=== PATIENT | female | born 1935 | race Caucasian/White ===

== ENCOUNTER → 2016-12-29 | Outpatient (CLI) | payer MEDICARE, OTHER ==
[~2016-12-29] MED LIST: ADENOSINE 60 MG in GIVE UN-DILUTED 0 ML IV ONE; ADENOSINE 90 MG/30 ML INJ IV ONE; ASPI81CH43 PO; EXFORGE PO; GLIP-116 PO; HYDR-1421 PO; METO25TA5 PO; NEXIUM PO; NORVASC PO; SIMV-13 PO; SMZ PO
== END | disposition home or self-care (01) ==
LOC: Rad HDHVI 09:12
PROVIDERS: ATTEND Internal Medicine Cardiovascular Disease
DX: R00.2 Palpitations (principal); M54.12 Radiculopathy, cervical region; H53.2 Diplopia; E11.9 Type 2 diabetes mellitus without complications; Z79.4 Long term (current) use of insulin
CPT/HCPCS: 78452; 93005; 93880; 96374; 96375; A9500; J0153

== ENCOUNTER → 2017-12-16 | Outpatient (CLI) | payer MEDICARE, OTHER ==
[~2017-12-16] MED LIST changes: -ADENOSINE 60 MG in GIVE UN-DILUTED 0 ML IV ONE; -ADENOSINE 90 MG/30 ML INJ IV ONE
== END | disposition home or self-care (01) ==
LOC: Rad HDHVI 11:42
PROVIDERS: ATTEND Internal Medicine Cardiovascular Disease
DX: M19.012 Primary osteoarthritis, left shoulder (principal); M75.32 Calcific tendinitis of left shoulder; M19.011 Primary osteoarthritis, right shoulder; M48.061 Spinal stenosis, lumbar region without neurogenic claudication; M43.16 Spondylolisthesis, lumbar region
CPT/HCPCS: 72131; 73030

== ENCOUNTER → 2018-01-13 | Outpatient (CLI) | payer MEDICARE, OTHER ==
[~2018-01-13] MED LIST changes: +ADENOSINE 72 MG in GIVE UN-DILUTED 0 ML IV ONE; +ADENOSINE 90 MG/30 ML INJ IV ONE
[2018-01-13 12:01] LABS: Urine Blood Negative /uL (Negative); Urine Specific Gravity 1.022 (1.001-1.035)
[2018-01-13 12:07] LABS: Basophils # (auto) 0 uL; Basophils % (auto) 0.6 % (0.0-2.0); Eosinophils # (auto) 0.3 uL; Hemoglobin 13.1 g/dL (12.2-16.2); Lymphocytes # (auto) 1.6 uL; Lymphocytes % (auto) 22.6 % (10.0-50.0); Mean Corpuscular Hemoglobin 30.1 pg (28.0-32.0); Mean Corpuscular Hgb Conc. 32.8 g/dL (32.0-36.0); Mean Corpuscular Volume 91.7 fL (80.0-100.0); Monocytes # (auto) 0.7 uL; Monocytes % (auto) 9.7 % (0.0-12.0); Neutrophils # (auto) 4.5 uL; Neutrophils % (auto) 63.1 % (37.0-80.0); Platelet Count (auto) 221 10^3/uL (140-450); Red Blood Cells 4.36 10^6/uL (4.0-5.20); Red Cell Distribution Width 14.5 % (11.8-14.3); White Blood Cell 7.1 10^3/uL (4.4-10.8)
[2018-01-13 12:17] LABS: Free T4 (Free Thyroxine) 1.33 ng/dL (0.89-1.76)
[2018-01-13 12:26] LABS: Albumin 3.9 g/dL (3.4-5.0); BUN/Creatinine Ratio 24.7; Bilirubin, Total 0.5 mg/dL (0.2-1.0); Calcium 9.4 mg/dL (8.5-10.1); Potassium 4.6 mmol/L (3.5-5.1); Total Protein 7.3 g/dL (6.4-8.2)
== END | disposition home or self-care (01) ==
LOC: Rad HDHVI 08:56
PROVIDERS: ATTEND Internal Medicine Cardiovascular Disease
DX: I07.1 Rheumatic tricuspid insufficiency (principal); M25.512 Pain in left shoulder; M25.511 Pain in right shoulder; E78.5 Hyperlipidemia, unspecified; D64.9 Anemia, unspecified; I10 Essential (primary) hypertension; E11.9 Type 2 diabetes mellitus without complications; E03.9 Hypothyroidism, unspecified; E55.9 Vitamin D deficiency, unspecified; D51.9 Vitamin B12 deficiency anemia, unspecified; N39.0 Urinary tract infection, site not specified
CPT/HCPCS: 36415; 78452; 80053; 80061; 81003; 82306; 82607; 83036; 84439; 84443; 85025; 93005; 93306; 96374; 96375; A9500; J0153

== ENCOUNTER → 2018-07-24 | Outpatient (CLI) | payer MEDICARE, MEDICAID ==
[~2018-07-24] MED LIST changes: -ADENOSINE 72 MG in GIVE UN-DILUTED 0 ML IV ONE; -ADENOSINE 90 MG/30 ML INJ IV ONE; +AMLO-321 PO; +CHOL100079 OR; +COEN100C37 PO; +DEXL60CA3 PO; +ESOM40CA39 PO; +GABA300C10 PO; +LORA-655 PO; +RANITAB8 PO; +SITA50TA28 PO
[2018-07-24 09:15] VITALS: BP 141/60
[2018-07-24 09:45] VITALS: BP 124/64
[2018-07-24 12:32] LABS: Basophils # (auto) 0 uL; Basophils % (auto) 0.7 % (0.0-2.0); Eosinophils # (auto) 0.3 uL; Eosinophils % (auto) 4.2 % (0.0-7.0); Hematocrit 40.6 % (36.0-46.0); Hemoglobin 13.7 g/dL (12.2-16.2); Lymphocytes # (auto) 1.3 uL; Lymphocytes % (auto) 20.3 % (10.0-50.0); Mean Corpuscular Hemoglobin 31.3 pg (28.0-32.0); Mean Corpuscular Hgb Conc. 33.7 g/dL (32.0-36.0); Mean Corpuscular Volume 92.9 fL (80.0-100.0); Monocytes # (auto) 0.6 uL; Monocytes % (auto) 9.2 % (0.0-12.0); Neutrophils # (auto) 4.3 uL; Neutrophils % (auto) 65.6 % (37.0-80.0); Nucleated Red Blood Cells % 0.1 %; Platelet Count (auto) 226 10^3/uL (140-450); Red Blood Cells 4.37 10^6/uL (4.0-5.20); Red Cell Distribution Width 14.1 % (11.8-14.3); White Blood Cell 6.5 10^3/uL (4.4-10.8)
[2018-07-24 12:37] LABS: Calcium 9.3 mg/dL (8.5-10.1); Potassium 4.2 mmol/L (3.5-5.1)
[2018-07-24 12:39] LABS: BUN/Creatinine Ratio 27.2
[2018-07-24 13:20] LABS: INR 0.94 (0.9-1.15); Partial Thromboplastin Time 23.2 sec (23.78-33.04); Prothrombin Time 10.1 sec (9.27-12.13)
== END | disposition home or self-care (01) ==
LOC: Rad HDHVI 09:00
PROVIDERS: ATTEND Internal Medicine Cardiovascular Disease
DX: Z01.818 Encounter for other preprocedural examination (principal); D64.9 Anemia, unspecified; R79.1 Abnormal coagulation profile; I10 Essential (primary) hypertension
CPT/HCPCS: 36415; 71046; 80048; 85025; 85610; 85730; 93005; G0463

== ENCOUNTER 2018-07-27 07:57 | Day surgery (SDC) | payer MEDICARE, MEDICAID ==
[~2018-07-27] VITALS: Ht 162.6 cm; Wt 82.6 kg
[~2018-07-27 07:57] MED LIST changes: -ASPI81CH43 PO; -EXFORGE PO; -GLIP-116 PO; -HYDR-1421 PO; -METO25TA5 PO; -NEXIUM PO; -NORVASC PO; -SMZ PO
[2018-07-27] MEDS ORDERED: LIDOCAINE 2%HCL (LOCAL ANESTH.) INJ 10ml MDV ONE (08:52)
[2018-07-27] MEDS ORDERED: IOHEXOL 350 MG/ML 100ML IJ ONE (08:53)
[2018-07-27] MEDS ORDERED: MIDAZOLAM HCL 1MG/1ML-2 ML VIAL ONE (09:31)
[2018-07-27] MEDS ORDERED: fentaNYL CITRATE 100 MCG/2 ML VL ONE (09:31)
[2018-07-27] MEDS ORDERED: ANGIOMAX 250 MG VIAL IV ONE (09:31)
[2018-07-27] MEDS ORDERED: SODIUM CHL 0.9% 50 ML ONE (09:31)
== END 2018-07-27 12:30 | disposition home or self-care (01) ==
LOC: CATH 07:57
PROVIDERS: ATTEND Internal Medicine Cardiovascular Disease
DX: I25.10 Atherosclerotic heart disease of native coronary artery without angina pectoris (principal); R94.39 Abnormal result of other cardiovascular function study; I10 Essential (primary) hypertension; E78.5 Hyperlipidemia, unspecified; I25.2 Old myocardial infarction; I73.9 Peripheral vascular disease, unspecified; E11.9 Type 2 diabetes mellitus without complications; Z88.5 Allergy status to narcotic agent; Z88.8 Allergy status to other drugs, medicaments and biological substances; Z90.710 Acquired absence of both cervix and uterus; Z84.89 Family history of other specified conditions; Z80.9 Family history of malignant neoplasm, unspecified; Z82.49 Family history of ischemic heart disease and other diseases of the circulatory system; Z95.5 Presence of coronary angioplasty implant and graft; Z86.73 Personal history of transient ischemic attack (TIA), and cerebral infarction without residual deficits; Z98.890 Other specified postprocedural states; Z79.899 Other long term (current) drug therapy
CPT/HCPCS: 93458; 99152; A6257; C1760; C1887; C1894; J0583; J1644; J2001; J2250; J3010; J7030; Q9967

== ENCOUNTER → 2019-07-10 | Outpatient (CLI) | payer MEDICARE, MEDICAID | END | disposition home or self-care (01) | LOC: Rad HDHVI 11:44 | PROVIDERS: ATTEND Internal Medicine | DX: M81.0 Age-related osteoporosis without current pathological fracture (principal); R07.81 Pleurodynia | CPT/HCPCS: 71101; 73562 ==

== ENCOUNTER → 2019-07-31 | Outpatient (CLI) | payer MEDICARE, MEDICAID | END | disposition home or self-care (01) | LOC: Rad HDHVI 12:53 | PROVIDERS: ATTEND Internal Medicine Cardiovascular Disease | DX: I08.8 Other rheumatic multiple valve diseases (principal); I25.10 Atherosclerotic heart disease of native coronary artery without angina pectoris; I10 Essential (primary) hypertension; I27.20 Pulmonary hypertension, unspecified | CPT/HCPCS: 93306 ==

== ENCOUNTER → 2019-08-01 | Outpatient (CLI) | payer MEDICARE, MEDICAID | END | disposition home or self-care (01) | LOC: Rad HDHVI 12:51 | PROVIDERS: ATTEND Internal Medicine Cardiovascular Disease | DX: I11.9 Hypertensive heart disease without heart failure (principal); I25.10 Atherosclerotic heart disease of native coronary artery without angina pectoris; E11.9 Type 2 diabetes mellitus without complications; R07.89 Other chest pain; E78.5 Hyperlipidemia, unspecified; Z88.5 Allergy status to narcotic agent; Z88.8 Allergy status to other drugs, medicaments and biological substances | CPT/HCPCS: 93880 ==

== ENCOUNTER → 2019-08-28 | Outpatient (CLI) | payer MEDICARE, MEDICAID ==
[~2019-08-28] VITALS: Ht 162.6 cm; Wt 86.2 kg
[~2019-08-28] MED LIST changes: +ADENOSINE 72 MG in GIVE UN-DILUTED 0 ML IV ONE; +ADENOSINE 90 MG/30 ML INJ IV ONE
== END | disposition home or self-care (01) ==
LOC: Rad HDHVI 08:04
PROVIDERS: ATTEND Internal Medicine Cardiovascular Disease
DX: E11.9 Type 2 diabetes mellitus without complications (principal); G47.30 Sleep apnea, unspecified; I10 Essential (primary) hypertension; I73.9 Peripheral vascular disease, unspecified; I25.10 Atherosclerotic heart disease of native coronary artery without angina pectoris
CPT/HCPCS: 78452; 93005; 96374; 96375; A9500; J0153

== ENCOUNTER 2021-02-21 14:15 | Inpatient (IN) | payer MEDICARE, OTHER, MEDICAID ==
[~2021-02-21] VITALS: Ht 165.1 cm; Wt 85.2 kg
[~2021-02-21 14:15] MED LIST changes: -ADENOSINE 72 MG in GIVE UN-DILUTED 0 ML IV ONE; -ADENOSINE 90 MG/30 ML INJ IV ONE; -AMLO-321 PO; +AMLO-390 PO; -DEXL60CA3 PO; +DEXL60CA4 PO
[2021-02-21] MEDS ORDERED: NITROGLYCERIN 0.4 MG SL TAB SL PRN (15:00)
[2021-02-21] MEDS ORDERED: MORPHINE SULFATE INJECTION 2 MG/ML SYRG IV PRN (15:00)
[2021-02-21] MEDS ORDERED: DEXTROSE (50%) 50ML SYRG IV PRN (15:00)
[2021-02-21] MEDS ORDERED: AMLO-489 PO (15:28)
[2021-02-21] MEDS ORDERED: CLOP75TA28 PO (15:28)
[2021-02-21] MEDS ORDERED: SITA100T7 PO (15:28)
[2021-02-21] MEDS ORDERED: VALS320T15 PO (15:28)
[2021-02-21 17:00] VITALS: BP 169/78
[2021-02-21] MEDS: InsuLIN REG 1unit/0.01ml Soln (100units/ml) SC SCH ×2 (17:00→22:06)
[2021-02-21] MEDS: ACCU-CHEK COMFORT CURVE STRIP VI SCH ×2 (17:02→22:05)
[2021-02-21] MEDS: MORPHINE SULFATE INJECTION 2 MG/ML SYRG IV PRN ×2 (17:03→22:09)
[2021-02-21] MEDS ORDERED: ALPRAZolam 0.25 MG TAB PO SCH (18:45)
[2021-02-21] MEDS: ONDANSETRON HCL 4 MG/2 ML VIAL IV PRN (19:02)
[2021-02-21] MEDS ORDERED: ALPRAZolam 0.25 MG TAB PO PRN (19:15)
[2021-02-21 21:19] VITALS: BP 143/69
[2021-02-21] MEDS: SENNA 8.6 MG TAB PO SCH (22:05)
[2021-02-21] MEDS: PRAVASTATIN SODIUM 20 MG TAB PO SCH (22:05)
[2021-02-22] MEDS: HYDROcodone-ACET 5/325MG TAB PO PRN (01:54)
[2021-02-22] MEDS: MORPHINE SULFATE INJECTION 2 MG/ML SYRG IV PRN ×3 (04:20→17:48)
[2021-02-22 05:00] VITALS: BP 161/69
[2021-02-22 06:04] LABS: Basophils # (auto) 0.1 10 ^3/uL (0-0.2); Basophils % (auto) 0.6 % (0.0-2.0); Eosinophils # (auto) 0.3 10 ^3/uL (0-0.8); Eosinophils % (auto) 2.3 % (0.0-7.0); Hematocrit 38.9 % (36.0-46.0); Hemoglobin 13.4 g/dL (12.2-16.2); Lymphocytes # (auto) 1.2 10 ^3/uL (0.4-5.4); Lymphocytes % (auto) 10.2 % (10.0-50.0); Mean Corpuscular Hemoglobin 31.4 pg (28.0-32.0); Mean Corpuscular Hgb Conc. 34.4 g/dL (32.0-36.0); Mean Corpuscular Volume 91.5 fL (80.0-100.0); Monocytes # (auto) 0.9 10 ^3/uL (0-1.3); Monocytes % (auto) 7.4 % (0.0-12.0); Neutrophils # (auto) 9.3 10 ^3/uL (1.6-8.6); Neutrophils % (auto) 79.5 % (37.0-80.0); Red Blood Cells 4.26 10^6/uL (4.0-5.20); Red Cell Distribution Width 12.9 % (11.8-14.3); White Blood Cell 11.6 10^3/uL (4.4-10.8)
[2021-02-22] MEDS: ACCU-CHEK COMFORT CURVE STRIP VI SCH ×4 (06:08→22:06)
[2021-02-22 06:24] LABS: Potassium 4.3 mmol/L (3.5-5.1)
[2021-02-22 06:37] LABS: Calcium 9.1 mg/dL (8.5-10.1)
[2021-02-22] MEDS: InsuLIN REG 1unit/0.01ml Soln (100units/ml) SC SCH ×4 (06:41→22:39)
[2021-02-22 06:52] LABS: Urine Bacteria NONE SEEN /hpf (None Seen); Urine Blood Negative /uL (Negative); Urine Specific Gravity 1.016 (1.001-1.035); Urine WBC 2 /hpf (0 - 5)
[2021-02-22 08:31] VITALS: BP 149/69
[2021-02-22] MEDS ORDERED: CLOPIDOGREL BISULFATE 75 MG TAB PO SCH (10:00)
[2021-02-22] MEDS: GABAPENTIN 300 MG CAP PO SCH (10:34)
[2021-02-22] MEDS: VALSARTAN 80 MG TAB PO SCH (10:34)
[2021-02-22] MEDS: amLODIPine BESYLATE 5 MG TAB PO SCH (10:35)
[2021-02-22] MEDS: PANTOPRAZOLE 40 MG TAB PO SCH (10:35)
[2021-02-22 13:04] VITALS: BP 150/78
[2021-02-22 16:59] VITALS: BP 148/67
[2021-02-22] MEDS: ONDANSETRON HCL 4 MG/2 ML VIAL IV PRN (18:12)
[2021-02-22 19:53] LABS: INR 1.08 (0.9-1.15); Partial Thromboplastin Time 29.1 sec (23.0-31.2)
[2021-02-22 22:00] VITALS: BP 152/73
[2021-02-22] MEDS: SENNA 8.6 MG TAB PO SCH (22:06)
[2021-02-22] MEDS: PRAVASTATIN SODIUM 20 MG TAB PO SCH (22:06)
[2021-02-23] MEDS: MORPHINE SULFATE INJECTION 2 MG/ML SYRG IV PRN (04:10)
[2021-02-23 05:00] VITALS: BP 149/69
[2021-02-23] MEDS: ACCU-CHEK COMFORT CURVE STRIP VI SCH ×4 (06:21→22:09)
[2021-02-23] MEDS: InsuLIN REG 1unit/0.01ml Soln (100units/ml) SC SCH ×4 (06:22→22:15)
[2021-02-23 08:00] VITALS: BP 156/81
[2021-02-23] MEDS: amLODIPine BESYLATE 5 MG TAB PO SCH (10:46)
[2021-02-23] MEDS: VALSARTAN 80 MG TAB PO SCH (10:47)
[2021-02-23 12:00] VITALS: BP 143/65
[2021-02-23] MEDS ORDERED: LIDOCAINE 2%HCL (LOCAL ANESTH.) INJ 20ML MDV ONE (12:36)
[2021-02-23] MEDS ORDERED: VANCOMYCIN 1GM/250ML 250 ML IV ONE (14:41)
[2021-02-23] MEDS ORDERED: fentaNYL CITRATE 100 MCG/2 ML VL ONE (14:41)
[2021-02-23] MEDS ORDERED: VANCOMYCIN HCL 1000 MG VL ONE (14:41)
[2021-02-23] MEDS ORDERED: MIDAZOLAM HCL 2MG/2ML 2ml VIAL (1mg/ml) ONE (14:41)
[2021-02-23 16:56] VITALS: BP 130/67
[2021-02-23] MEDS: GABAPENTIN 300 MG CAP PO SCH (17:15)
[2021-02-23] MEDS: PANTOPRAZOLE 40 MG TAB PO SCH (17:15)
[2021-02-23] MEDS: ceFAZolin 1GM/50ML 50 ML IV SCH ×2 (17:16→22:51)
[2021-02-23 22:00] VITALS: BP 142/68
[2021-02-23] MEDS: PRAVASTATIN SODIUM 20 MG TAB PO SCH (22:09)
[2021-02-23] MEDS: SENNA 8.6 MG TAB PO SCH (22:09)
[2021-02-24] VITALS (9 sets, daily range): BP systolic 120–142; BP diastolic 65–83
[2021-02-24] MEDS: ACCU-CHEK COMFORT CURVE STRIP VI SCH ×4 (06:20→21:37)
[2021-02-24] MEDS: InsuLIN REG 1unit/0.01ml Soln (100units/ml) SC SCH ×4 (06:21→21:46)
[2021-02-24] MEDS: VALSARTAN 80 MG TAB PO SCH (08:31)
[2021-02-24] MEDS: GABAPENTIN 300 MG CAP PO SCH (08:32)
[2021-02-24] MEDS: PANTOPRAZOLE 40 MG TAB PO SCH (08:32)
[2021-02-24] MEDS: amLODIPine BESYLATE 5 MG TAB PO SCH (08:32)
[2021-02-24] MEDS ORDERED: ANGIOMAX 250 MG VIAL IV ONE (12:12)
[2021-02-24] MEDS ORDERED: MIDAZOLAM HCL 2MG/2ML 2ml VIAL (1mg/ml) ONE (12:13)
[2021-02-24] MEDS ORDERED: LIDOCAINE 2%HCL (LOCAL ANESTH.) INJ 20ML MDV ONE (12:13)
[2021-02-24] MEDS ORDERED: SODIUM CHL 0.9% 50 ML ONE (12:13)
[2021-02-24] MEDS ORDERED: IOHEXOL 350 MG/ML 100ML IJ ONE (12:13)
[2021-02-24] MEDS ORDERED: fentaNYL CITRATE 100 MCG/2 ML VL ONE (12:13)
[2021-02-24] MEDS ORDERED: ASPirin 325 MG TAB ONE (13:25)
[2021-02-24] MEDS ORDERED: CLOPIDOGREL 300 MG TAB ONE (13:25)
[2021-02-24] MEDS ORDERED: HYDROmorphone HCL 2 MG/ML VL IV ONE (14:00)
[2021-02-24] MEDS: KETOROLAC TROMETH 30 MG/ML 1ML VIAL IV PRN ×2 (16:03→21:56)
[2021-02-24] MEDS: PRAVASTATIN SODIUM 20 MG TAB PO SCH (21:37)
[2021-02-24] MEDS: SENNA 8.6 MG TAB PO SCH (21:37)
[2021-02-25 05:00] VITALS: BP 122/75
[2021-02-25] MEDS: ACCU-CHEK COMFORT CURVE STRIP VI SCH ×3 (06:45→17:00)
[2021-02-25] MEDS: InsuLIN REG 1unit/0.01ml Soln (100units/ml) SC SCH ×3 (06:46→17:00)
[2021-02-25 08:00] VITALS: BP 134/74
[2021-02-25 09:00] VITALS: BP 134/74
[2021-02-25] MEDS: KETOROLAC TROMETH 30 MG/ML 1ML VIAL IV PRN ×2 (09:36→15:42)
[2021-02-25] MEDS: GABAPENTIN 300 MG CAP PO SCH (09:37)
[2021-02-25] MEDS: PANTOPRAZOLE 40 MG TAB PO SCH (09:37)
[2021-02-25] MEDS: amLODIPine BESYLATE 5 MG TAB PO SCH (09:38)
[2021-02-25] MEDS: VALSARTAN 80 MG TAB PO SCH (09:38)
[2021-02-25] MEDS ORDERED: CLOPIDOGREL 300 MG TAB PO ONE (10:00)
[2021-02-25] MEDS ORDERED: ASPirin 325 MG TAB PO ONE (10:00)
[2021-02-25 12:36] VITALS: BP 133/72
[2021-02-25 16:41] VITALS: BP 119/70
[2021-02-25] MEDS: HYDROcodone-ACET 5/325MG TAB PO PRN (16:41)
[2021-02-25 17:46] VITALS: BP 134/74
[2021-02-26] MEDS ORDERED: CLOPIDOGREL BISULFATE 75 MG TAB PO SCH (10:00)
[2021-02-26] MEDS ORDERED: ASPirin 81 mg TAB PO SCH (10:00)
[2021-04-17] MEDS ORDERED: METO25TA93 PO (12:18)
[2021-04-17] MEDS ORDERED: APIX2.5T PO (12:18)
[2021-04-17] MEDS ORDERED: CHOL10009 PO (12:18)
[2021-04-17] MEDS ORDERED: SITA100T7 PO (12:18)
[2021-04-17] MEDS ORDERED: [UNRECOGNIZED DRUG - CODE] PO (12:18)
[2021-04-17] MEDS ORDERED: SIMV-13 PO (12:18)
[2021-04-17] MEDS ORDERED: VORT10TA PO (12:18)
[2021-04-17] MEDS ORDERED: HYDR-4072 PO (12:18)
[2021-04-17] MEDS ORDERED: CELE200C PO (12:18)
[2021-04-17] MEDS ORDERED: DEXL60CA4 PO (12:18)
[2021-04-17] MEDS ORDERED: DULO1CAP5 PO (12:18)
[2021-04-17] MEDS ORDERED: GABA300C10 PO (12:18)
[2021-04-17] MEDS ORDERED: MULT-681 PO (12:18)
[2021-04-17] MEDS ORDERED: COEN1CAP8 PO (12:18)
== END 2021-02-25 19:45 | disposition home health service (06) | DRG 242 ==
LOC: TELE-EAST 14:15
PROVIDERS: ADMIT Internal Medicine Cardiovascular Disease; ATTEND Internal Medicine Cardiovascular Disease
PROC: 0JH606Z Insertion of Pacemaker, Dual Chamber into Chest Subcutaneous Tissue and Fascia, Open Approach (ICD-10-PCS; principal; 2021-02-23)
PROC: 02H63JZ Insertion of Pacemaker Lead into Right Atrium, Percutaneous Approach (ICD-10-PCS; 2021-02-23)
PROC: 02HK3JZ Insertion of Pacemaker Lead into Right Ventricle, Percutaneous Approach (ICD-10-PCS; 2021-02-23)
PROC: 02U03JZ Supplement Coronary Artery, One Artery with Synthetic Substitute, Percutaneous Approach (ICD-10-PCS; 2021-02-24)
PROC: B211YZZ Fluoroscopy of Multiple Coronary Arteries using Other Contrast (ICD-10-PCS; 2021-02-24)
PROC: B215YZZ Fluoroscopy of Left Heart using Other Contrast (ICD-10-PCS; 2021-02-24)
PROC: B51BYZZ Fluoroscopy of Right Lower Extremity Veins using Other Contrast (ICD-10-PCS; 2021-02-24)
PROC: 4A023N7 Measurement of Cardiac Sampling and Pressure, Left Heart, Percutaneous Approach (ICD-10-PCS; 2021-02-24)
PROC: 0270346 Dilation of Coronary Artery, One Artery, Bifurcation, with Drug-eluting Intraluminal Device, Percutaneous Approach (ICD-10-PCS; 2021-02-24)
DX: I49.5 Sick sinus syndrome (principal); I21.4 Non-ST elevation (NSTEMI) myocardial infarction; I10 Essential (primary) hypertension; Z20.822 Contact with and (suspected) exposure to COVID-19
CPT/HCPCS: 33208; 36415; 71045; 80048; 81001; 82962; 85025; 85610; 85730; 86850; 86900; 86901; 92928; 93005; 93458; 99152; 99153; C1785; C1874; G0378; J0690; J1815; J1885; J2250; J2405

== ENCOUNTER → 2021-04-17 | Outpatient (CLI) | payer MEDICARE, OTHER, MEDICAID ==
[~2021-04-17] MED LIST changes: -AMLO-390 PO; +AMLO-489 PO; +APIX2.5T PO; +CELE200C PO; -CHOL100079 OR; +CHOL10009 PO; +CLOP75TA28 PO; -COEN100C37 PO; +COEN1CAP8 PO; +DULO1CAP5 PO; -ESOM40CA39 PO; +HYDR-4072 PO; -LORA-655 PO; +METO25TA93 PO; +MULT-681 PO; -RANITAB8 PO; +SITA100T7 PO; -SITA50TA28 PO; +VALS320T15 PO; +VORT10TA PO; +[UNRECOGNIZED DRUG - CODE] PO
[2021-04-17 09:03] VITALS: BP 110/83
[2021-04-17 09:18] VITALS: BP 97/64
[2021-04-17 11:51] LABS: Basophils # (auto) 0.1 10 ^3/uL (0-0.2); Basophils % (auto) 0.7 % (0.0-2.0); Eosinophils # (auto) 0.5 10 ^3/uL (0-0.8); Eosinophils % (auto) 4.8 % (0.0-7.0); Hematocrit 43.6 % (36.0-46.0); Hemoglobin 14.6 g/dL (12.2-16.2); Lymphocytes # (auto) 1.4 10 ^3/uL (0.4-5.4); Lymphocytes % (auto) 13.5 % (10.0-50.0); Mean Corpuscular Hemoglobin 30.9 pg (28.0-32.0); Mean Corpuscular Hgb Conc. 33.4 g/dL (32.0-36.0); Mean Corpuscular Volume 92.5 fL (80.0-100.0); Monocytes # (auto) 0.9 10 ^3/uL (0-1.3); Monocytes % (auto) 8.4 % (0.0-12.0); Neutrophils # (auto) 7.6 10 ^3/uL (1.6-8.6); Neutrophils % (auto) 72.6 % (37.0-80.0); Nucleated Red Blood Cells % 0.1 %; Red Blood Cells 4.72 10^6/uL (4.0-5.20); Red Cell Distribution Width 14.2 % (11.8-14.3); White Blood Cell 10.5 10^3/uL (4.4-10.8)
[2021-04-17 11:56] LABS: Calcium 9.4 mg/dL (8.5-10.1); Magnesium 1.9 mg/dL (1.6-2.6)
[2021-04-17 11:58] LABS: BUN/Creatinine Ratio 16.7
[2021-04-17 12:00] LABS: INR 1.05 (0.9-1.15); Partial Thromboplastin Time 29.5 sec (23.0-31.2)
== END | disposition home or self-care (01) ==
LOC: Rad HDHVI 08:44
PROVIDERS: ATTEND Internal Medicine Cardiovascular Disease
DX: Z01.812 Encounter for preprocedural laboratory examination (principal); I10 Essential (primary) hypertension; I48.91 Unspecified atrial fibrillation; R00.1 Bradycardia, unspecified; R06.02 Shortness of breath; R94.31 Abnormal electrocardiogram [ECG] [EKG]
CPT/HCPCS: 36415; 71046; 80048; 83735; 85025; 85049; 85610; 85730; 93005; G0463

== ENCOUNTER 2021-04-23 08:37 | Inpatient (IN) | payer MEDICARE, OTHER, MEDICAID ==
[~2021-04-23] VITALS: Ht 167.6 cm; Wt 85.3 kg
[~2021-04-23 08:37] MED LIST changes: -AMLO-489 PO; -CLOP75TA28 PO; -VALS320T15 PO
[2021-04-23] MEDS ORDERED: SODIUM CHL 0.9% 50 ML ONE (12:41)
[2021-04-23] MEDS ORDERED: ANGIOMAX 250 MG VIAL IV ONE (12:41)
[2021-04-23] MEDS ORDERED: MIDAZOLAM HCL 2MG/2ML 2ml VIAL (1mg/ml) ONE (12:41)
[2021-04-23] MEDS ORDERED: fentaNYL CITRATE 100 MCG/2 ML VL ONE (12:41)
[2021-04-23] MEDS ORDERED: LIDOCAINE 2%HCL (LOCAL ANESTH.) INJ 20ML MDV ONE (12:43)
[2021-04-23] MEDS ORDERED: IOHEXOL 350 MG/ML 100ML IJ ONE (13:10)
[2021-04-23] MEDS ORDERED: TICAGRELOR 90 MG TAB ONE (13:20)
[2021-04-23] MEDS ORDERED: ASPirin 325 MG TAB ONE (13:22)
[2021-04-23] MEDS ORDERED: ACETAMINOPHEN 500 MG TAB PO PRN (15:00)
[2021-04-23] MEDS ORDERED: HYDROcodone-ACET 10/325MG TAB PO PRN (15:00)
[2021-04-23] MEDS ORDERED: MORPHINE SULF INJ 2 MG/ML SYRINGE 1ML IV PRN (15:00)
[2021-04-23] MEDS ORDERED: DEXTROSE (50%) 50ML SYRG IV PRN (15:00)
[2021-04-23] MEDS ORDERED: NITROGLYCERIN 0.4 MG SL TAB SL PRN (15:00)
[2021-04-23] MEDS ORDERED: ONDANSETRON HCL 4 MG/2 ML VIAL IV PRN (15:00)
[2021-04-23 16:57] VITALS: BP 158/86
[2021-04-23] MEDS: InsuLIN REG 1unit/0.01ml Soln (100units/ml) SC SCH ×2 (18:10→22:11)
[2021-04-23] MEDS: ACCU-CHEK COMFORT CURVE STRIP VI SCH ×2 (18:10→21:57)
[2021-04-23 20:00] VITALS: BP 102/55
[2021-04-23] MEDS: DULoxetine HCL 30 MG CAP PO SCH (21:57)
[2021-04-23] MEDS: GABAPENTIN 300 MG CAP PO SCH (21:57)
[2021-04-23 22:00] VITALS: BP 102/55
[2021-04-23] MEDS ORDERED: ATORVASTATIN 20 MG TAB PO SCH (22:00)
[2021-04-23] MEDS: TICAGRELOR 60 MG TAB PO SCH (22:15)
[2021-04-24 05:00] VITALS: BP 114/73
[2021-04-24] MEDS: GABAPENTIN 300 MG CAP PO SCH ×2 (06:16→15:31)
[2021-04-24] MEDS: ACCU-CHEK COMFORT CURVE STRIP VI SCH ×2 (06:19→11:30)
[2021-04-24] MEDS: InsuLIN REG 1unit/0.01ml Soln (100units/ml) SC SCH ×2 (06:26→12:10)
[2021-04-24] MEDS ORDERED: METOPROLOL SUCCINATE XL 50 MG TAB PO SCH (07:00)
[2021-04-24] MEDS ORDERED: amLODIPine BESYLATE 5 MG TAB PO SCH (07:00)
[2021-04-24] MEDS ORDERED: VORTIOXETINE HYDROBROMIDE 10 MG PO SCH (07:00)
[2021-04-24] MEDS ORDERED: CHOLECALCIFEROL (VITD3) 1,000UNIT=25mCg TAB PO SCH (07:00)
[2021-04-24] MEDS ORDERED: PANTOPRAZOLE 40 MG TAB PO SCH (07:00)
[2021-04-24] MEDS ORDERED: Sitagliptin Phosphate (Januvia) 100 MG TAB PO SCH (07:00)
[2021-04-24] MEDS ORDERED: COENZYME Q10 PO SCH (07:00)
[2021-04-24 09:00] VITALS: BP 135/78
[2021-04-24] MEDS: DULoxetine HCL 30 MG CAP PO SCH (09:30)
[2021-04-24] MEDS: TICAGRELOR 60 MG TAB PO SCH (09:33)
[2021-04-24] MEDS ORDERED: LOSARTAN POTASSIUM 50 MG TAB PO SCH (10:00)
[2021-04-24] MEDS ORDERED: APIXABAN 2.5 MG TAB PO SCH (10:00)
[2021-04-24] MEDS ORDERED: CELECOXIB 100 MG CAP PO SCH (10:00)
[2021-04-24] MEDS ORDERED: MULTIPLE VITAMINS W/ MINERALS TAB PO SCH (10:00)
== END 2021-04-24 17:00 | disposition home or self-care (01) | DRG 247 ==
LOC: CATH 08:37 → TELE 14:53 → TELE-CENTR 16:42
PROVIDERS: ADMIT Internal Medicine; ATTEND Internal Medicine
PROC: 4A023N7 Measurement of Cardiac Sampling and Pressure, Left Heart, Percutaneous Approach (ICD-10-PCS; principal; 2021-04-23)
PROC: 027034Z Dilation of Coronary Artery, One Artery with Drug-eluting Intraluminal Device, Percutaneous Approach (ICD-10-PCS; 2021-04-23)
PROC: B2151ZZ Fluoroscopy of Left Heart using Low Osmolar Contrast (ICD-10-PCS; 2021-04-23)
PROC: B41F1ZZ Fluoroscopy of Right Lower Extremity Arteries using Low Osmolar Contrast (ICD-10-PCS; 2021-04-23)
PROC: B2111ZZ Fluoroscopy of Multiple Coronary Arteries using Low Osmolar Contrast (ICD-10-PCS; 2021-04-23)
DX: I25.10 Atherosclerotic heart disease of native coronary artery without angina pectoris (principal); I49.5 Sick sinus syndrome; I48.0 Paroxysmal atrial fibrillation; Z95.0 Presence of cardiac pacemaker; Z20.822 Contact with and (suspected) exposure to COVID-19; Z88.6 Allergy status to analgesic agent; Z88.8 Allergy status to other drugs, medicaments and biological substances
CPT/HCPCS: 75710; 82962; 87081; 92928; 93458; 99152; C1874; G0378; J1815; J2250

== ENCOUNTER → 2024-04-04 | Outpatient (CLI) | payer MEDICARE, MEDICAID ==
[~2024-04-04] MED LIST changes: +GABA-1250 PO; -GABA300C10 PO; -SIMV-13 PO; +SIMV40TA18 PO
== END | disposition home or self-care (01) ==
LOC: Rad HDHVI 16:51
PROVIDERS: ATTEND Internal Medicine Cardiovascular Disease
DX: I10 Essential (primary) hypertension (principal)
CPT/HCPCS: 93880

== ENCOUNTER → 2024-04-11 | Outpatient (CLI) | payer MEDICARE, MEDICAID | END | disposition home or self-care (01) | LOC: Rad HDHVI 15:49 | PROVIDERS: ATTEND Internal Medicine Cardiovascular Disease | DX: I08.3 Combined rheumatic disorders of mitral, aortic and tricuspid valves (principal); I11.0 Hypertensive heart disease with heart failure; I50.43 Acute on chronic combined systolic (congestive) and diastolic (congestive) heart failure | CPT/HCPCS: 93306 ==